=== PATIENT | female | born 1975 | race Two or more races ===

== ENCOUNTER 2021-06-03 11:11 | Outpatient (CLI) | payer OTHER ==
[~2021-06-03 11:11] MED LIST: CATAFLAM50 MG PO; CEFTIN250 MG PO; COZAAR100 MG PO; CYCLOBENZAPRINE10 MG PO; DOLOGEN CAPLET1 EACH PO; FIORICET 50-321 EACH PO; FLEXERIL10 MG PO; LOTRISONE CREAM45 GM TP; MEDROL4 MG PO; NABUMETONE750 MG PO; SKELAXIN800 MG PO; VOLTAREM 50 MG PO
== END 2021-06-03 18:00 | disposition home or self-care (01) ==
LOC: LAB 11:11
PROVIDERS: ATTEND Emergency Medicine Pediatric Emergency Medicine
DX: Z03.818 Encounter for observation for suspected exposure to other biological agents ruled out (principal)

== ENCOUNTER 2021-09-14 08:00 | Outpatient (CLI) | payer OTHER ==
[~2021-09-14 08:00] MED LIST changes: +KETO10TA2 PO
== END 2021-09-14 08:30 | disposition home or self-care (01) ==
LOC: PPH VACUNA 08:00
PROVIDERS: ATTEND Emergency Medicine Pediatric Emergency Medicine
DX: Z23 Encounter for immunization (principal)

== ENCOUNTER 2021-10-21 09:27 | Outpatient (CLI) | payer OTHER | END 2021-10-21 09:44 | disposition home or self-care (01) | LOC: RAD 09:27 | PROVIDERS: ATTEND Internal Medicine Cardiovascular Disease | DX: I10 Essential (primary) hypertension (principal) ==

== ENCOUNTER 2021-10-22 06:32 | Outpatient (CLI) | payer OTHER | END 2021-10-22 06:33 | disposition home or self-care (01) | LOC: LAB 06:32 | PROVIDERS: ATTEND Internal Medicine Cardiovascular Disease | DX: I10 Essential (primary) hypertension (principal); E11.9 Type 2 diabetes mellitus without complications; E03.8 Other specified hypothyroidism; E78.2 Mixed hyperlipidemia; E55.9 Vitamin D deficiency, unspecified ==

== ENCOUNTER 2021-10-28 12:22 | Outpatient (CLI) | payer OTHER | END 2021-10-28 12:38 | disposition home or self-care (01) | LOC: MAMO-SONO 12:22 | PROVIDERS: ATTEND Internal Medicine Cardiovascular Disease | DX: N63.11 Unspecified lump in the right breast, upper outer quadrant (principal); N63.0 Unspecified lump in unspecified breast ==

== ENCOUNTER 2021-11-20 09:00 | Outpatient (CLI) | payer OTHER | END 2021-11-20 09:15 | disposition home or self-care (01) | LOC: PPH VACUNA 09:00 | PROVIDERS: ATTEND Emergency Medicine Pediatric Emergency Medicine | DX: Z23 Encounter for immunization (principal) ==

== ENCOUNTER 2022-08-31 10:30 | Outpatient (CLI) | payer OTHER | END 2022-08-31 10:35 | disposition home or self-care (01) | LOC: PPH VACUNA 10:30 | PROVIDERS: ATTEND Emergency Medicine Pediatric Emergency Medicine | DX: Z23 Encounter for immunization (principal) ==

== ENCOUNTER 2022-12-15 07:49 | Outpatient (CLI) | payer OTHER | END 2022-12-15 07:55 | disposition home or self-care (01) | LOC: RAD 07:49 | PROVIDERS: ATTEND Physical Medicine & Rehabilitation | DX: M54.2 Cervicalgia (principal) ==

== ENCOUNTER 2023-03-07 15:02 | Outpatient (CLI) | payer OTHER | END 2023-03-07 15:03 | disposition home or self-care (01) | LOC: LAB 15:02 | PROVIDERS: ATTEND Obstetrics & Gynecology | DX: N91.2 Amenorrhea, unspecified (principal); E78.5 Hyperlipidemia, unspecified; E34.9 Endocrine disorder, unspecified; N95.1 Menopausal and female climacteric states; E23.6 Other disorders of pituitary gland; R19.00 Intra-abdominal and pelvic swelling, mass and lump, unspecified site; N39.0 Urinary tract infection, site not specified; E55.9 Vitamin D deficiency, unspecified; D51.9 Vitamin B12 deficiency anemia, unspecified; N73.9 Female pelvic inflammatory disease, unspecified; A60.04 Herpesviral vulvovaginitis; R73.9 Hyperglycemia, unspecified; K75.9 Inflammatory liver disease, unspecified; A49.3 Mycoplasma infection, unspecified site; J11.1 Influenza due to unidentified influenza virus with other respiratory manifestations ==

== ENCOUNTER 2023-03-10 16:05 | Outpatient (CLI) | payer OTHER | END 2023-03-10 16:07 | disposition home or self-care (01) | LOC: LAB 16:05 | PROVIDERS: ATTEND Internal Medicine Cardiovascular Disease | DX: E11.9 Type 2 diabetes mellitus without complications (principal) ==

== ENCOUNTER 2023-05-19 16:33 | Outpatient (CLI) | payer OTHER | END 2023-05-19 16:35 | disposition home or self-care (01) | LOC: LAB 16:33 | PROVIDERS: ATTEND Anesthesiology | DX: Z20.822 Contact with and (suspected) exposure to COVID-19 (principal) ==

== ENCOUNTER 2023-06-01 16:23 | Outpatient (CLI) | payer OTHER | END 2023-06-01 16:25 | disposition home or self-care (01) | LOC: LAB 16:23 | DX: A49.3 Mycoplasma infection, unspecified site (principal) ==

== ENCOUNTER 2023-10-20 16:10 | Outpatient (CLI) | payer OTHER ==
[2023-10-20 16:57] LABS: MYCOPLASMA PNEUMONIAE IGM NON REACTIVE (NO REACTIVE)
== END 2023-10-20 16:14 | disposition home or self-care (01) ==
LOC: LAB 16:10
PROVIDERS: ATTEND Anesthesiology
DX: Z20.822 Contact with and (suspected) exposure to COVID-19 (principal); A49.3 Mycoplasma infection, unspecified site; J09.X2 Influenza due to identified novel influenza A virus with other respiratory manifestations

== ENCOUNTER 2024-01-10 09:00 | Outpatient (CLI) | payer OTHER | END 2024-01-10 09:10 | disposition home or self-care (01) | LOC: PPH VACUNA 09:00 | PROVIDERS: ATTEND Emergency Medicine Pediatric Emergency Medicine | DX: Z23 Encounter for immunization (principal) ==

== ENCOUNTER 2024-05-18 06:10 | Outpatient (CLI) | payer OTHER ==
[2024-05-19 09:15] LABS: ESTRADIOL SERUM 34.9 pg/mL (.); FOLLICLE STIMULATING HORMONE 94.6 mIU/mL (.); PROGESTERONA < 0.1 ng/mL (.)
== END 2024-05-18 06:20 | disposition home or self-care (01) ==
LOC: LAB 06:10
PROVIDERS: ATTEND Obstetrics & Gynecology
DX: N91.2 Amenorrhea, unspecified (principal); E78.5 Hyperlipidemia, unspecified; N98.1 Hyperstimulation of ovaries

== ENCOUNTER 2024-05-24 14:45 | Outpatient (CLI) | payer OTHER | END 2024-05-24 14:54 | disposition home or self-care (01) | LOC: MAMO-SONO 14:45 | PROVIDERS: ATTEND Obstetrics & Gynecology | DX: N63.0 Unspecified lump in unspecified breast (principal); N64.4 Mastodynia; N93.9 Abnormal uterine and vaginal bleeding, unspecified ==

== ENCOUNTER 2024-06-26 15:16 | Outpatient (CLI) | payer OTHER | END 2024-06-26 15:19 | disposition home or self-care (01) | LOC: LAB 15:16 | PROVIDERS: ATTEND Preventive Medicine Occupational Medicine | DX: B19.10 Unspecified viral hepatitis B without hepatic coma (principal) ==

== ENCOUNTER 2024-08-09 10:20 | Outpatient (CLI) | payer OTHER | END 2024-08-09 11:00 | disposition home or self-care (01) | LOC: PPH VACUNA 10:20 | PROVIDERS: ATTEND Emergency Medicine Pediatric Emergency Medicine | DX: Z23 Encounter for immunization (principal) ==

== ENCOUNTER 2024-09-13 15:29 | Outpatient (CLI) | payer OTHER | END 2024-09-13 15:32 | disposition home or self-care (01) | LOC: LAB 15:29 | PROVIDERS: ATTEND Anesthesiology | DX: Z00.00 Encounter for general adult medical examination without abnormal findings (principal) ==

== ENCOUNTER → 2024-09-14 13:42 | Outpatient (CLI) | payer OTHER ==
[~2024-09-14 13:42] MED LIST changes: +ACTIVELLA 1 MG1 EACH; +AVAPRO300 MG PO; +GLIMEPIRIDE4 MG; +PROMETRIUM200 MG
[2024-09-14 14:25] LABS: HEMATOCRIT 39.1 % (36.0-45.00); HEMOGLOBIN 12.5 g/dL (12.0-15.00); MEAN CELL VOLUME 78.2 fL (80.00-100.00); MEAN CORPUSCULAR HGB CONC 31.9 g/dl (32.0-36.0); PLATELET COUNT 338 K/uL (150-450); RED BLOOD COUNT 4.99 M/uL (4.00-6.00); RED CELL DISTRIBUTION WIDTH 14.9 % (11.5-14.5)
[2024-09-14 15:06] LABS: MYCOPLASMA PNEUMONIAE IGM NON REACTIVE (NO REACTIVE)
== END | disposition home or self-care (01) ==
LOC: LAB 13:42
PROVIDERS: ATTEND Anesthesiology
DX: J11.1 Influenza due to unidentified influenza virus with other respiratory manifestations (principal); A49.3 Mycoplasma infection, unspecified site; Z20.822 Contact with and (suspected) exposure to COVID-19

== ENCOUNTER 2024-09-16 06:33 | Emergency (ER) | payer OTHER ==
[~2024-09-16] VITALS: Ht 157.5 cm; Wt 68.0 kg
[~2024-09-16 06:33] MED LIST changes: -ACTIVELLA 1 MG1 EACH; -AVAPRO300 MG PO; -GLIMEPIRIDE4 MG; -PROMETRIUM200 MG
[2024-09-16] MEDS ORDERED: GLIMEPIRIDE4 MG (06:43)
[2024-09-16] MEDS ORDERED: AVAPRO300 MG PO (06:43)
[2024-09-16] MEDS ORDERED: ACTIVELLA 1 MG1 EACH (06:44)
[2024-09-16] MEDS ORDERED: PROMETRIUM200 MG (06:45)
[2024-09-16] MEDS ORDERED: FAMOTIDINE/PF 20 MG in 0.9 % SODIUM CHLORIDE 8 ML IV PUSH STA (07:03)
[2024-09-16] MEDS ORDERED: 0.9 % SODIUM CHLORIDE 1,000 ML IV SCH (07:15)
[2024-09-16] MEDS ORDERED: METRONIDAZOLE/SODIUM CHLORIDE 500 MG/100 ML PIGGYBACK IV ONE (07:15)
[2024-09-16] MEDS ORDERED: DIPHENOXYLATE HCL/ATROPINE 1 UDTAB TABLET PO ONE (07:15)
[2024-09-16 07:57] LABS: HEMATOCRIT 40.8 % (36.0-45.00); HEMOGLOBIN 13.7 g/dL (12.0-15.00); MEAN CELL VOLUME 76.3 fL (80.00-100.00); MEAN CORPUSCULAR HEMOGLOBIN 25.6 pg (27.00-32.0); MEAN CORPUSCULAR HGB CONC 33.6 g/dl (32.0-36.0); PLATELET COUNT 342 K/uL (150-450); RED BLOOD COUNT 5.35 M/uL (4.00-6.00); RED CELL DISTRIBUTION WIDTH 14.9 % (11.5-14.5)
[2024-09-16 08:35] LABS: ALBUMIN 3.5 gm/dL (3.4-5.0); BILIRUBIN TOTAL 0.22 mg/dL (0.3-1.2); CALCIUM 9.1 mg/dL (8.5-10.1); CREATININE SERUM 0.86 mg/dL (0.55-1.02); GFR 69.56; GLOBULINA 4.5 G/DL (2.4-3.5)
[2024-09-16 08:40] LABS: POTASSIUM 2.97 mEq/L (3.5-5.1)
[2024-09-16] MEDS ORDERED: POTASSIUM CHLORIDE/NACL 0.9% 20 MEQ/1,000 ML PIGGYBAG IV STA (08:42)
[2024-09-16] MEDS ORDERED: POTASSIUM CHLORIDE IN 0.9%NACL 40 MEQ/1,000 ML PIGGYBAG IV STA (09:52)
== END 2024-09-16 11:19 | disposition home or self-care (01) ==
LOC: ER 06:34
PROVIDERS: General Practice
DX: K52.89 Other specified noninfective gastroenteritis and colitis (principal); I10 Essential (primary) hypertension; E11.9 Type 2 diabetes mellitus without complications; Z79.84 Long term (current) use of oral hypoglycemic drugs; N20.1 Calculus of ureter; N13.39 Other hydronephrosis

== ENCOUNTER 2024-10-03 12:31 | Outpatient (CLI) | payer OTHER ==
[~2024-10-03 12:31] MED LIST changes: +ACTIVELLA 1 MG1 EACH; +AVAPRO300 MG PO; +GLIMEPIRIDE4 MG; +PROMETRIUM200 MG
[2024-10-03 13:31] LABS: HEMATOCRIT 37.7 % (36.0-45.00); HEMOGLOBIN 12.7 g/dL (12.0-15.00); MEAN CELL VOLUME 77.3 fL (80.00-100.00); MEAN CORPUSCULAR HGB CONC 33.6 g/dl (32.0-36.0); PLATELET COUNT 446 K/uL (150-450); RED BLOOD COUNT 4.87 M/uL (4.00-6.00); RED CELL DISTRIBUTION WIDTH 15.1 % (11.5-14.5)
[2024-10-03 13:37] LABS: URINE APPEARANCE Clear; URINE BILIRRUBIN Negative (NEGATIVE); URINE BLOOD Negative; URINE COLOR Yellow; URINE GLUCOSE Negative (NEGATIVE); URINE KETONE Negative (NEGATIVE); URINE LEUKOCYTE Trace; URINE NITRATE Negative; URINE PROTEIN Negative (NEGATIVE); URINE UROBILINOGEN 0.2 E.U./dl
[2024-10-03 13:38] LABS: URINE BACTERIA 565.6 uL (0.0-1933); URINE EPITHELIAL CELLS 8.9 uL (0.0-38.8); URINE RBC 8.8 uL (0.0-20.8); URINE WBC 23.7 uL (0.0-23.2)
[2024-10-03 13:49] LABS: INR 0.97; PARTIAL THROMBOPLASTIN TIME 23.9 SECONDS (22.0-34.0); PROTHROMBIN TIME 10.6 SECONDS (9.0-11.5)
[2024-10-03 14:39] LABS: ALBUMIN 3.8 gm/dL (3.4-5.0); BILIRUBIN TOTAL 0.67 mg/dL (0.3-1.2); CALCIUM 9.4 mg/dL (8.5-10.1); CREATININE SERUM 0.63 mg/dL (0.55-1.02); GFR 99.62; GLOBULINA 3.8 G/DL (2.4-3.5); POTASSIUM 3.14 mEq/L (3.5-5.1); TOTAL PROTEIN 7.6 gm/dL (6.4-8.2)
== END 2024-10-03 12:32 | disposition home or self-care (01) ==
LOC: RAD 12:31
PROVIDERS: ATTEND Specialist
DX: R97.0 Elevated carcinoembryonic antigen [CEA] (principal); Z01.818 Encounter for other preprocedural examination; E53.9 Vitamin B deficiency, unspecified; E55.9 Vitamin D deficiency, unspecified; Z11.4 Encounter for screening for human immunodeficiency virus [HIV]; R63.4 Abnormal weight loss; K73.9 Chronic hepatitis, unspecified; Z32.00 Encounter for pregnancy test, result unknown; D52.9 Folate deficiency anemia, unspecified; E53.8 Deficiency of other specified B group vitamins; E78.00 Pure hypercholesterolemia, unspecified

== ENCOUNTER → 2024-11-14 09:35 | Outpatient (CLI) | payer OTHER ==
[2024-11-14 12:03] LABS: ALBUMIN 3.8 gm/dL (3.4-5.0); CALCIUM 9.5 mg/dL (8.5-10.1); CREATININE SERUM 0.61 mg/dL (0.55-1.02); GFR 103.4; PHOSPHOROUS 3.4 mg/dL (2.5-4.9); POTASSIUM 3.15 mEq/L (3.5-5.1)
[2024-11-14 12:10] LABS: ob NEGATIVE (NEGATIVE)
[2024-11-14 13:17] LABS: FECAL LEUKOCYTES NEGATIVE (NEGATIVE)
== END | disposition home or self-care (01) ==
LOC: LAB 09:35
PROVIDERS: ATTEND Surgery
DX: A09 Infectious gastroenteritis and colitis, unspecified (principal); A04.72 Enterocolitis due to Clostridium difficile, not specified as recurrent; R14.0 Abdominal distension (gaseous)

== ENCOUNTER 2024-11-29 16:24 | Outpatient (CLI) | payer OTHER | END 2024-11-29 16:30 | disposition home or self-care (01) | LOC: RAD 16:24 | PROVIDERS: ATTEND Urology | DX: N28.0 Ischemia and infarction of kidney (principal); N20.1 Calculus of ureter; I11.0 Hypertensive heart disease with heart failure ==

== ENCOUNTER 2024-11-30 06:55 | Outpatient (CLI) | payer OTHER ==
[2024-11-30 07:40] LABS: URINE APPEARANCE Clear; URINE BILIRRUBIN Negative (NEGATIVE); URINE BLOOD Negative; URINE COLOR Yellow; URINE GLUCOSE Negative (NEGATIVE); URINE KETONE Negative (NEGATIVE); URINE LEUKOCYTE Small; URINE NITRATE Negative; URINE PROTEIN Trace (NEGATIVE); URINE UROBILINOGEN 0.2 E.U./dl
[2024-11-30 07:43] LABS: URINE BACTERIA 2219.9 uL (0.0-1933); URINE EPITHELIAL CELLS 11.7 uL (0.0-38.8); URINE RBC 14.8 uL (0.0-20.8); URINE WBC 84.8 uL (0.0-23.2)
[2024-11-30 07:44] LABS: URINE CAST 0.29 uL (0.0-1.40)
[2024-11-30 08:04] LABS: HEMATOCRIT 34.4 % (36.0-45.00); HEMOGLOBIN 11.6 g/dL (12.0-15.00); MEAN CELL VOLUME 77.2 fL (80.00-100.00); MEAN CORPUSCULAR HEMOGLOBIN 26.1 pg (27.00-32.0); MEAN CORPUSCULAR HGB CONC 33.8 g/dl (32.0-36.0); PLATELET COUNT 462 K/uL (150-450); RED BLOOD COUNT 4.46 M/uL (4.00-6.00); RED CELL DISTRIBUTION WIDTH 14.9 % (11.5-14.5)
[2024-11-30 09:05] LABS: ALBUMIN 3.4 gm/dL (3.4-5.0); BILIRUBIN TOTAL 0.34 mg/dL (0.3-1.2); CALCIUM 9.8 mg/dL (8.5-10.1); CREATININE SERUM 0.68 mg/dL (0.55-1.02); GFR 91.22; POTASSIUM 3.47 mEq/L (3.5-5.1); TOTAL PROTEIN 7.4 gm/dL (6.4-8.2)
[2024-12-04] MEDS ORDERED: AVALIDE 300-121 EACH PO (15:22)
== END 2024-11-30 23:00 | disposition home or self-care (01) ==
LOC: LAB 06:55
PROVIDERS: ATTEND Urology
DX: N20.0 Calculus of kidney (principal); N28.0 Ischemia and infarction of kidney

== ENCOUNTER 2024-12-07 05:00 | Day surgery (SDC) | payer OTHER ==
[2024-12-04 15:23] VITALS: BP 121/78
[2024-12-04 15:23] LABS: INR 0.97; PARTIAL THROMBOPLASTIN TIME 25.6 SECONDS (22.0-34.0); PROTHROMBIN TIME 10.6 SECONDS (9.0-11.5)
[~2024-12-07] VITALS: Ht 157.5 cm; Wt 68.0 kg
[~2024-12-07 05:00] MED LIST changes: +AVALIDE 300-121 EACH PO
[2024-12-07] MEDS ORDERED: GENTAMICIN SULFATE 40 MG/ML VIAL ONE (06:11)
[2024-12-07] MEDS ORDERED: CHLORHEXIDINE GLUCONATE 120 ML BOTTLE TOP ONE (06:12)
[2024-12-07] MEDS ORDERED: IOVERSOL 320 MG/ML - 50 ML VIAL IV ONE (08:23)
[2024-12-07] MEDS ORDERED: TAMSULOSIN HCL 0.4 MG CAP PO STA (08:32)
[2024-12-07] MEDS ORDERED: PHENAZOPYRIDINE HCL 100 MG TABLET PO STA (08:32)
[2024-12-07] MEDS ORDERED: KETOROLAC TROMETHAMINE 30 MG VIAL IV STA (08:32)
[2024-12-07] MEDS ORDERED: TAMSULOSIN HCL 0.4 MG CAP PO ONE (11:39)
[2024-12-07] MEDS ORDERED: PHENAZOPYRIDINE HCL 100 MG TABLET PO ONE (11:39)
[2024-12-07] MEDS ORDERED: KETOROLAC TROMETHAMINE 30 MG VIAL ONE (11:43)
[2024-12-07] MEDS ORDERED: KETOROLAC TROMETHAMINE 30 MG VIAL IV ONE (11:50)
[2024-12-07] MEDS ORDERED: MORPHINE SULFATE 4 MG/ML VIAL IV ONE (12:20)
== END 2024-12-07 14:05 | disposition home or self-care (01) ==
LOC: CIR.AMB 05:00
PROVIDERS: ATTEND Urology
DX: N20.1 Calculus of ureter (principal); E11.9 Type 2 diabetes mellitus without complications

== ENCOUNTER 2025-01-22 15:23 | Outpatient (CLI) | payer OTHER | END 2025-01-22 15:26 | disposition home or self-care (01) | LOC: TOM 15:23 | PROVIDERS: ATTEND Urology | DX: N20.1 Calculus of ureter (principal); N20.0 Calculus of kidney ==

== ENCOUNTER 2025-01-29 09:35 | Inpatient (IN) | payer OTHER ==
[~2025-01-29] VITALS: Ht 152.4 cm; Wt 68.0 kg
[2025-01-29] MEDS ORDERED: FAMOtidine 10 MG/ML (4ML VIAL) IV ONE (10:45)
[2025-01-29] MEDS ORDERED: KETOROLAC TROMETHAMINE 30 MG VIAL IU ONE ×2 (10:45→17:45)
[2025-01-29] MEDS ORDERED: PIPERACILLIN/TAZOBACTAM SODIUM 3.375 GM VIAL IV ONE ×2 (10:45→11:18)
[2025-01-29] MEDS ORDERED: KETOROLAC TROMETHAMINE 30 MG VIAL ONE ×2 (11:18→18:00)
[2025-01-29] MEDS ORDERED: FAMOTIDINE/PF 20 MG/2 ML VIAL ONE ×2 (11:18→18:01)
[2025-01-29 12:12] LABS: URINE APPEARANCE Clear; URINE BILIRRUBIN Negative (NEGATIVE); URINE BLOOD Negative; URINE COLOR Yellow; URINE GLUCOSE Negative (NEGATIVE); URINE KETONE Negative (NEGATIVE); URINE LEUKOCYTE Negative; URINE NITRATE Negative; URINE PROTEIN Negative (NEGATIVE); URINE UROBILINOGEN 0.2 E.U./dl
[2025-01-29 12:17] LABS: URINE BACTERIA 35.4 uL (0.0-1933); URINE EPITHELIAL CELLS 7.2 uL (0.0-38.8); URINE WBC 5.9 uL (0.0-23.2)
[2025-01-29 12:18] LABS: URINE RBC 1.3 uL (0.0-20.8)
[2025-01-29 12:19] LABS: HEMATOCRIT 35.6 % (36.0-45.00); HEMOGLOBIN 11.6 g/dL (12.0-15.00); MEAN CELL VOLUME 77.2 fL (80.00-100.00); MEAN CORPUSCULAR HEMOGLOBIN 25.1 pg (27.00-32.0); MEAN CORPUSCULAR HGB CONC 32.5 g/dl (32.0-36.0); PLATELET COUNT 350 K/uL (150-450); RED BLOOD COUNT 4.61 M/uL (4.00-6.00); RED CELL DISTRIBUTION WIDTH 15.4 % (11.5-14.5)
[2025-01-29 12:40] LABS: ALBUMIN 3.5 gm/dL (3.4-5.0); BILIRUBIN TOTAL 0.47 mg/dL (0.3-1.2); CALCIUM 9.8 mg/dL (8.5-10.1); CREATININE SERUM 1.08 mg/dL (0.55-1.02); GFR 53.48; GLOBULINA 4.3 G/DL (2.4-3.5); POTASSIUM 3.02 mEq/L (3.5-5.1); TOTAL PROTEIN 7.8 gm/dL (6.4-8.2)
[2025-01-29 15:05] LABS: PARTIAL THROMBOPLASTIN TIME 27.1 SECONDS (22.0-34.0); PROTHROMBIN TIME 10.9 SECONDS (9.0-11.5)
[2025-01-29] MEDS ORDERED: CEFTRIAXONE SODIUM 2,000 MG in 0.9 % SODIUM CHLORIDE 100 ML IV SCH (17:34)
[2025-01-29] MEDS ORDERED: FAMOTIDINE/PF 20 MG in 0.9 % SODIUM CHLORIDE 8 ML IV PUSH SCH (17:36)
[2025-01-29] MEDS ORDERED: TAMSULOSIN HCL 0.4 MG CAP PO SCH (17:38)
[2025-01-29] MEDS ORDERED: INSULIN LISPRO 1,000 UNIT/10 ML UNITS SUBCUTANEO PRN (17:45)
[2025-01-29] MEDS ORDERED: TRAMADOL HCL 50 MG TABLET PO PRN (17:45)
[2025-01-29] MEDS ORDERED: ACETAMINOPHEN 500 MG GEL..CAP PO PRN (17:45)
[2025-01-29] MEDS ORDERED: 0.9 % SODIUM CHLORIDE 1,000 ML IV SCH (17:45)
[2025-01-29] MEDS ORDERED: POTASSIUM CHLORIDE 20MEQ/100ML H2O PB IV ONE ×2 (17:45→18:01)
[2025-01-29] MEDS ORDERED: DEXTROSE 50 % IN WATER 0.5 G/ML DISP.SYRIN IV PRN (17:45)
[2025-01-29] MEDS ORDERED: TAMSULOSIN HCL 0.4 MG CAP PO ONE (18:00)
[2025-01-29] MEDS ORDERED: CEFTRIAXONE SODIUM 2,000 MG VIAL ONE (18:01)
[2025-01-29 21:07] VITALS: BP 129/72
[2025-01-29] MEDS ORDERED: ACETAMINOPHEN 500 MG GEL..CAP PO ONE (23:40)
[2025-01-29 23:53] VITALS: BP 119/81; O2SAT 100
[2025-01-30 03:03] VITALS: BP 108/68; O2SAT 97
[2025-01-30] MEDS ORDERED: MEPERIDINE HCL/PF 25 MG/ML VIAL IV PRN (07:30)
[2025-01-30 08:26] VITALS: BP 132/78
[2025-01-30] MEDS ORDERED: IRBESARTAN 300 MG TABLET PO SCH (09:00)
[2025-01-30] MEDS ORDERED: ENOXAPARIN SODIUM 40 MG/0.4 ML SYRINGE SUBCUTANEO SCH (09:00)
[2025-01-30 10:06] LABS: MAGNESIUM 2.6 mg/dL (1.8-2.4); PHOSPHOROUS 2.8 mg/dL (2.5-4.9)
[2025-01-30 10:11] LABS: C-REACTIVE PROTEIN 9.49 MG/DL (0.00-0.29)
[2025-01-30] MEDS ORDERED: GENTAMICIN SULFATE 40 MG/ML VIAL IV NR (14:15)
[2025-01-30] MEDS ORDERED: CHLORHEXIDINE GLUCONATE 120 ML BOTTLE TOP ONE (15:10)
[2025-01-30] MEDS ORDERED: IOVERSOL 320 MG/ML - 50 ML VIAL IV ONE (15:11)
[2025-01-30 18:52] VITALS: BP 127/76
[2025-01-30] MEDS ORDERED: ONDANSETRON HCL 2 MG/ML VIAL ONE (19:55)
[2025-01-30] MEDS ORDERED: ONDANSETRON HCL 2 MG/ML VIAL IV ONE (20:00)
[2025-01-30] MEDS ORDERED: MORPHINE SULFATE 2 MG/ML CARTRIDGE IV ONE (20:05)
[2025-01-30 22:29] VITALS: BP 110/56
[2025-01-31 05:00] VITALS: BP 99/65
[2025-01-31 08:10] LABS: HEMOGLOBIN 10.3 g/dL (12.0-15.00); MEAN CELL VOLUME 77.3 fL (80.00-100.00); MEAN CORPUSCULAR HEMOGLOBIN 24.9 pg (27.00-32.0); MEAN CORPUSCULAR HGB CONC 32.3 g/dl (32.0-36.0); PLATELET COUNT 291 K/uL (150-450); RED BLOOD COUNT 4.14 M/uL (4.00-6.00); RED CELL DISTRIBUTION WIDTH 15.4 % (11.5-14.5)
[2025-01-31 08:53] LABS: ALBUMIN 2.9 gm/dL (3.4-5.0); BILIRUBIN TOTAL 0.29 mg/dL (0.3-1.2); CALCIUM 8.4 mg/dL (8.5-10.1); CREATININE SERUM 0.83 mg/dL (0.55-1.02); GFR 72.47; GLOBULINA 3.7 G/DL (2.4-3.5); MAGNESIUM 2.2 mg/dL (1.8-2.4); PHOSPHOROUS 3.1 mg/dL (2.5-4.9); POTASSIUM 3.29 mEq/L (3.5-5.1); TOTAL PROTEIN 6.6 gm/dL (6.4-8.2)
[2025-01-31 09:14] LABS: C-REACTIVE PROTEIN 9.91 MG/DL (0.00-0.29)
[2025-01-31 09:38] VITALS: BP 120/76; O2SAT 98
[2025-01-31 10:14] LABS: URINE APPEARANCE Clear; URINE BILIRRUBIN Negative (NEGATIVE); URINE BLOOD Small; URINE COLOR Yellow; URINE GLUCOSE Negative (NEGATIVE); URINE KETONE 15 (NEGATIVE); URINE LEUKOCYTE Moderate; URINE NITRATE Negative; URINE PROTEIN 30 (NEGATIVE); URINE UROBILINOGEN 0.2 E.U./dl
[2025-01-31 10:19] LABS: URINE BACTERIA 134.6 uL (0.0-1933); URINE EPITHELIAL CELLS 16.7 uL (0.0-38.8); URINE RBC 131.8 uL (0.0-20.8); URINE WBC 149.5 uL (0.0-23.2)
[2025-01-31 11:02] LABS: URINE CAST 0.88 uL (0.0-1.40)
[2025-01-31 18:49] VITALS: BP 108/72; O2SAT 100
[2025-01-31] MEDS ORDERED: BISMUTH SUBSALICYLATE 524 MG/30 ML BLIST.PACK PO PRN (20:00)
[2025-01-31] MEDS ORDERED: MORPHINE SULFATE 4 MG/ML CARTRIDGE IV PRN (20:30)
[2025-01-31] MEDS ORDERED: FAMOtidine 20 MG TABLET PO SCH (21:00)
[2025-02-01] MEDS ORDERED: LACTOBACILLUS ACIDOPHILUS 1 CAP CAP PO SCH ×3 (01:00→17:00)
[2025-02-01 01:32] VITALS: BP 121/72
[2025-02-01 11:10] VITALS: BP 118/65
[2025-02-01 17:30] VITALS: BP 134/83
[2025-02-01 21:51] LABS: CALCIUM 9.2 mg/dL (8.5-10.1); CREATININE SERUM 0.72 mg/dL (0.55-1.02); GFR 85.4; POTASSIUM 3.39 mEq/L (3.5-5.1)
[2025-02-02 03:10] VITALS: BP 127/64; O2SAT 95
[2025-02-02 08:00] VITALS: BP 125/62
[2025-02-02] MEDS ORDERED: POTASSIUM CHLORIDE 10 MEQ CAPSULE PO NR (11:30)
[2025-02-02 17:08] VITALS: BP 131/75
[2025-02-02] MEDS ORDERED: MORPHINE SULFATE 4 MG/ML CARTRIDGE IV PRN (22:15)
[2025-02-03 01:30] VITALS: BP 135/83; O2SAT 99
[2025-02-03 08:00] VITALS: BP 136/81; O2SAT 98
[2025-02-03 08:33] LABS: CALCIUM 8.8 mg/dL (8.5-10.1); CREATININE SERUM 0.6 mg/dL (0.55-1.02); GFR 105.39; POTASSIUM 3.94 mEq/L (3.5-5.1)
[2025-02-03 17:48] VITALS: BP 139/92
[2025-02-04 00:39] VITALS: BP 102/50
[2025-02-04 10:07] VITALS: BP 124/72; O2SAT 98
== END 2025-02-04 15:15 | disposition home or self-care (01) | DRG 690 ==
LOC: ER 09:37 → MEDJ 18:49 → SEC-K 19:02 → MEDJ 01-30 00:06
PROVIDERS: General Practice; Internal Medicine; Internal Medicine Infectious Disease; Urology; ADMIT Internal Medicine; ATTEND Internal Medicine
PROC: BW21YZZ Computerized Tomography (CT Scan) of Abdomen and Pelvis using Other Contrast (ICD-10-PCS; 2025-01-29)
PROC: 0TJB8ZZ Inspection of Bladder, Via Natural or Artificial Opening Endoscopic (ICD-10-PCS; 2025-01-30)
PROC: 02HV33Z Insertion of Infusion Device into Superior Vena Cava, Percutaneous Approach (ICD-10-PCS; 2025-01-30)
PROC: 0T9680Z Drainage of Right Ureter with Drainage Device, Via Natural or Artificial Opening Endoscopic (ICD-10-PCS; principal; 2025-01-30 15:30)
DX: N13.5 Crossing vessel and stricture of ureter without hydronephrosis (principal); E87.6 Hypokalemia; R19.7 Diarrhea, unspecified; I10 Essential (primary) hypertension

== ENCOUNTER 2025-04-12 14:31 | Outpatient (CLI) | payer OTHER ==
[2025-04-12 15:00] LABS: URINE APPEARANCE Cloudy; URINE BILIRRUBIN Negative (NEGATIVE); URINE BLOOD Moderate; URINE COLOR Yellow; URINE GLUCOSE Negative (NEGATIVE); URINE KETONE Negative (NEGATIVE); URINE LEUKOCYTE Large; URINE NITRATE Negative; URINE PROTEIN Negative (NEGATIVE); URINE UROBILINOGEN 0.2 E.U./dl
[2025-04-12 15:03] LABS: URINE BACTERIA 1127.1 uL (0.0-1933); URINE EPITHELIAL CELLS 53.9 uL (0.0-38.8); URINE WBC 882.4 uL (0.0-23.2)
[2025-04-12 15:38] LABS: URINE CAST 0.14 uL (0.0-1.40)
== END 2025-04-12 14:33 | disposition home or self-care (01) ==
LOC: LAB 14:31
PROVIDERS: ATTEND Internal Medicine Geriatric Medicine
DX: N39.0 Urinary tract infection, site not specified (principal); N30.00 Acute cystitis without hematuria

== ENCOUNTER 2025-05-07 09:02 | Outpatient (CLI) | payer OTHER ==
[~2025-05-07 09:02] MED LIST changes: +TRIAMCINOL40 MG/1 M4 IJ
[2025-05-07 10:09] LABS: BASO % 0.7 % (0.1-1.2); EOS # 0.74 (0.04-0.54); EOS % 8.4 % (0.7-7.0); LYMPH # 2.44 (1.18-3.74); LYMPH % 27.6 % (19.3-53.1); MEAN PLATELET VOLUME 8.40 fl (9.4-12.4); MONO # 0.48 (0.24-0.82); MONO % 5.4 % (4.7-12.5); NEUT # 5.07 (1.56-6.13); NEUT % 57.4 % (34.0-71.1); RED CELL DISTRIBUTION WIDTH 13.8 % (11.6-14.4)
[2025-05-07 10:12] LABS: URINE APPEARANCE Turbid; URINE BILIRRUBIN Negative (NEGATIVE); URINE BLOOD Large; URINE COLOR Yellow; URINE GLUCOSE Negative (NEGATIVE); URINE KETONE Negative (NEGATIVE); URINE LEUKOCYTE Large; URINE NITRATE Positive; URINE UROBILINOGEN 1.0 E.U./dl
[2025-05-07 10:16] LABS: URINE CAST 1.47 uL (0.0-1.40); URINE EPITHELIAL CELLS 20.7 uL (0.0-38.8); URINE RBC 6299.7 uL (0.0-20.8)
[2025-05-07 10:34] LABS: INR 0.98
[2025-05-07 11:16] LABS: BUN CREA RATIO 23.0 (7.0-25.0); CREATININE SERUM 0.75 mg/dL (0.55-1.02); GFR 81.47; GLUCOSE FASTING 104.0 mg/dL (65-100); OSMOLALITY SERUM 289.0 MOSM/KG (275-295)
[2025-05-07 11:51] LABS: URINE BACTERIA > 9821.5 uL (0.0-1933); URINE PROTEIN 300 (NEGATIVE); URINE WBC > 5548.3 uL (0.0-23.2)
[2025-05-07 11:52] LABS: URINE CRYSTALS FEW /HPF
== END 2025-05-07 09:11 | disposition home or self-care (01) ==
LOC: RAD 09:02
PROVIDERS: ATTEND Urology
DX: R31.1 Benign essential microscopic hematuria (principal); N30.00 Acute cystitis without hematuria; I25.10 Atherosclerotic heart disease of native coronary artery without angina pectoris

== ENCOUNTER 2025-05-07 10:00 | Inpatient (IN) | payer OTHER ==
[~2025-05-07] VITALS: Ht 157.5 cm; Wt 68.0 kg
[2025-05-09 10:23] VITALS: BP 126/83
[2025-05-09 10:47] LABS: COVID-19 AG NEGATIVE (NEGATIVE)
[2025-05-09 11:36] LABS: RH POSITIVE
[2025-05-17] MEDS ORDERED: GENTAMICIN SULFATE 40 MG/ML VIAL IV ONE (08:45)
[2025-05-17] MEDS ORDERED: CEFAZOLIN SODIUM 1,000 MG VIAL IV ONE (08:45)
[2025-05-17] MEDS ORDERED: MORPHINE SULFATE 4 MG/ML VIAL IV ONE ×2 (13:10→13:40)
[2025-05-17] MEDS ORDERED: ENOXAPARIN SODIUM 40 MG/0.4 ML SYRINGE SUBCUTANEO ONE (13:15)
[2025-05-17] MEDS ORDERED: SUGAMMADEX SODIUM 200 MG/2 ML VIAL IV ONE (13:15)
[2025-05-17] MEDS ORDERED: DEXTROSE 5 %-0.45 % SOD CHLORD 1,000 ML IV SCH (13:18)
[2025-05-17] MEDS ORDERED: MORPHINE SULFATE 4 MG/ML CARTRIDGE IV PRN (13:30)
[2025-05-17] MEDS ORDERED: ONDANSETRON HCL 2 MG/ML VIAL IV PRN (13:30)
[2025-05-17 14:25] VITALS: BP 133/81; O2SAT 97
[2025-05-17] MEDS ORDERED: INSULIN LISPRO 1,000 UNIT/10 ML UNITS SUBCUTANEO PRN (15:15)
[2025-05-17] MEDS ORDERED: ENALAPRILAT DIHYDRATE 1.25 MG/ML VIAL IV PRN (15:15)
[2025-05-17] MEDS ORDERED: DEXTROSE 50 % IN WATER 0.5 G/ML VIAL IV PRN (15:15)
[2025-05-17 16:00] VITALS: BP 128/77; O2SAT 96
[2025-05-17] MEDS ORDERED: DOCUSATE SODIUM 100MG CAP PO SCH (17:00)
[2025-05-17] MEDS ORDERED: SIMETHICONE 125 MG CAPSULE PO SCH (17:00)
[2025-05-17 23:57] VITALS: BP 101/66; O2SAT 99
[2025-05-18 08:07] LABS: BASO % 0.3 % (0.1-1.2); EOS # 0.02 (0.04-0.54); EOS % 0.1 % (0.7-7.0); LYMPH # 2.53 (1.18-3.74); LYMPH % 15.8 % (19.3-53.1); MEAN PLATELET VOLUME 8.80 fl (9.4-12.4); MONO # 0.78 (0.24-0.82); MONO % 4.9 % (4.7-12.5); NEUT # 12.59 (1.56-6.13); NEUT % 78.5 % (34.0-71.1); RED CELL DISTRIBUTION WIDTH 14.3 % (11.6-14.4)
[2025-05-18 08:28] LABS: BUN CREA RATIO 18.0 (7.0-25.0); CREATININE SERUM 0.66 mg/dL (0.55-1.02); GFR 94.42; GLUCOSE FASTING 124.0 mg/dL (65-100); OSMOLALITY SERUM 282.0 MOSM/KG (275-295)
[2025-05-18 08:54] VITALS: BP 102/63; O2SAT 96
[2025-05-18] MEDS ORDERED: HYDROCHLOROTHIAZIDE 12.5 MG CAPSULE PO SCH (09:00)
[2025-05-18] MEDS ORDERED: GENTAMICIN SULFATE 40 MG/ML VIAL IV SCH (09:00)
[2025-05-18] MEDS ORDERED: ENOXAPARIN SODIUM 40 MG/0.4 ML SYRINGE SUBCUTANEO SCH (09:00)
[2025-05-18] MEDS ORDERED: IRBESARTAN 300 MG TABLET PO SCH (09:00)
[2025-05-18] MEDS ORDERED: POTASSIUM CHLORIDE IN WATER 100 ML IV NR (10:30)
[2025-05-18 15:00] VITALS: BP 149/89; O2SAT 18
[2025-05-18] MEDS ORDERED: ACETAMINOPHEN WITH CODEINE 1 UDTAB TABLET PO PRN (15:15)
[2025-05-19] VITALS: BP 114/68; O2SAT 97
[2025-05-19 08:00] VITALS: BP 121/63; O2SAT 99
[2025-05-19 09:21] LABS: BASO % 0.3 % (0.1-1.2); EOS # 0.29 (0.04-0.54); EOS % 1.8 % (0.7-7.0); LYMPH # 2.84 (1.18-3.74); LYMPH % 18.0 % (19.3-53.1); MEAN PLATELET VOLUME 8.90 fl (9.4-12.4); MONO # 0.93 (0.24-0.82); MONO % 5.9 % (4.7-12.5); NEUT # 11.57 (1.56-6.13); NEUT % 73.6 % (34.0-71.1); RED CELL DISTRIBUTION WIDTH 14.4 % (11.6-14.4)
[2025-05-19 10:06] LABS: BUN CREA RATIO 15.0 (7.0-25.0); CREATININE SERUM 0.59 mg/dL (0.55-1.02); GFR 107.46; GLUCOSE FASTING 121.0 mg/dL (65-100); OSMOLALITY SERUM 285.0 MOSM/KG (275-295)
[2025-05-19 15:00] VITALS: BP 117/73; O2SAT 99
[2025-05-19] MEDS ORDERED: KETOROLAC TROMETHAMINE 30 MG VIAL IV STA (16:03)
[2025-05-19] MEDS ORDERED: CYCLOBENZAPRINE HCL 5 MG TABLET PO SCH (17:00)
[2025-05-20 01:03] VITALS: BP 114/69; O2SAT 98
[2025-05-20 06:31] LABS: BASO % 0.2 % (0.1-1.2); EOS # 0.74 (0.04-0.54); EOS % 5.9 % (0.7-7.0); LYMPH # 2.76 (1.18-3.74); LYMPH % 22.2 % (19.3-53.1); MEAN PLATELET VOLUME 8.70 fl (9.4-12.4); MONO # 0.63 (0.24-0.82); MONO % 5.1 % (4.7-12.5); NEUT # 8.23 (1.56-6.13); NEUT % 66.1 % (34.0-71.1); RED CELL DISTRIBUTION WIDTH 14.0 % (11.6-14.4)
[2025-05-20 08:32] VITALS: BP 107/65; O2SAT 97
[2025-05-20 16:00] VITALS: BP 110/68; O2SAT 97
[2025-05-21] MEDS ORDERED: ACETAMINOPHEN WITH CODEINE 1 UDTAB TABLET PO PRN (00:15)
[2025-05-21 06:55] LABS: BASO % 0.3 % (0.1-1.2); EOS # 0.77 (0.04-0.54); EOS % 8.7 % (0.7-7.0); LYMPH # 2.50 (1.18-3.74); LYMPH % 28.3 % (19.3-53.1); MEAN PLATELET VOLUME 8.70 fl (9.4-12.4); MONO # 0.53 (0.24-0.82); MONO % 6.0 % (4.7-12.5); NEUT # 4.95 (1.56-6.13); NEUT % 56.1 % (34.0-71.1); RED CELL DISTRIBUTION WIDTH 14.1 % (11.6-14.4)
[2025-05-21 08:00] VITALS: BP 105/68; O2SAT 96
== END 2025-05-21 14:19 | disposition home or self-care (01) | DRG 660 ==
LOC: SURH 05-17 07:00 → O/R 05-17 07:45 → SURG 05-17 10:36
PROVIDERS: Internal Medicine; ADMIT Urology; ATTEND Urology
PROC: 0TS60ZZ Reposition Right Ureter, Open Approach (ICD-10-PCS; principal; 2025-05-18)
PROC: 0TB60ZZ Excision of Right Ureter, Open Approach (ICD-10-PCS; 2025-05-18)
PROC: 0T763DZ Dilation of Right Ureter with Intraluminal Device, Percutaneous Approach (ICD-10-PCS; 2025-05-18)
DX: N13.1 Hydronephrosis with ureteral stricture, not elsewhere classified (principal); N20.1 Calculus of ureter; I10 Essential (primary) hypertension; E11.9 Type 2 diabetes mellitus without complications

== ENCOUNTER → 2025-07-12 07:43 | Outpatient (CLI) | payer OTHER ==
[2025-07-12 10:22] LABS: URINE APPEARANCE Clear; URINE BILIRRUBIN Negative (NEGATIVE); URINE BLOOD Negative; URINE COLOR Yellow; URINE GLUCOSE Negative (NEGATIVE); URINE KETONE Negative (NEGATIVE); URINE LEUKOCYTE Small; URINE NITRATE Positive; URINE PROTEIN Negative (NEGATIVE); URINE UROBILINOGEN 0.2 E.U./dl
[2025-07-12 10:23] LABS: URINE EPITHELIAL CELLS 9.8 uL (0.0-38.8); URINE RBC 3.3 uL (0.0-20.8); URINE WBC 103.3 uL (0.0-23.2)
[2025-07-12 11:09] LABS: URINE BACTERIA > 9821.5 uL (0.0-1933); URINE CAST 0.00 uL (0.0-1.40)
== END | disposition home or self-care (01) ==
LOC: LAB 07:43
PROVIDERS: ATTEND Urology
DX: N20.1 Calculus of ureter (principal); N13.1 Hydronephrosis with ureteral stricture, not elsewhere classified

== ENCOUNTER 2025-07-12 07:57 | Outpatient (CLI) | payer OTHER | END 2025-07-12 08:03 | disposition home or self-care (01) | LOC: SONOGRAMA 07:57 | PROVIDERS: ATTEND Urology | DX: N20.1 Calculus of ureter (principal); N13.1 Hydronephrosis with ureteral stricture, not elsewhere classified ==

== ENCOUNTER 2025-07-16 12:44 | Inpatient (IN) | payer OTHER ==
[~2025-07-16] VITALS: Ht 157.5 cm; Wt 68.0 kg
[2025-07-16] MEDS ORDERED: 0.9 % SODIUM CHLORIDE 1,000 ML IV SCH ×2 (13:15→17:45)
[2025-07-16 14:26] LABS: BASO % 0.4 % (0.1-1.2); EOS # 0.35 (0.04-0.54); EOS % 3.8 % (0.7-7.0); LYMPH # 2.34 (1.18-3.74); LYMPH % 25.3 % (19.3-53.1); MEAN PLATELET VOLUME 8.60 fl (9.4-12.4); MONO # 0.55 (0.24-0.82); MONO % 5.9 % (4.7-12.5); NEUT # 5.96 (1.56-6.13); NEUT % 64.4 % (34.0-71.1); RED CELL DISTRIBUTION WIDTH 14.2 % (11.6-14.4)
[2025-07-16 14:50] LABS: ALT/SGPT 21.0 U/L (12-78); AST/SGOT 15.0 U/L (15-37); BILIRUBIN TOTAL 0.23 mg/dL (0.3-1.2); BUN CREA RATIO 15.0 (7.0-25.0); CREATININE SERUM 0.89 mg/dL (0.55-1.02); GFR 66.6; GLOBULINA 4.2 G/DL (2.4-3.5); GLUCOSE FASTING 160.0 mg/dL (65-100); OSMOLALITY SERUM 285.0 MOSM/KG (275-295)
[2025-07-16 14:50] LABS: COVID-19 AG NEGATIVE (NEGATIVE)
[2025-07-16] MEDS ORDERED: POTASSIUM CHLORIDE/D5-0.9%NACL 1,000 ML IV ONE (15:15)
[2025-07-16 15:34] LABS: URINE APPEARANCE Clear; URINE BILIRRUBIN Negative (NEGATIVE); URINE BLOOD Negative; URINE COLOR Yellow; URINE GLUCOSE Negative (NEGATIVE); URINE KETONE Negative (NEGATIVE); URINE LEUKOCYTE Negative; URINE NITRATE Negative; URINE PROTEIN Negative (NEGATIVE); URINE UROBILINOGEN 0.2 E.U./dl
[2025-07-16 15:35] LABS: URINE EPITHELIAL CELLS 3.2 uL (0.0-38.8); URINE WBC 10.7 uL (0.0-23.2)
[2025-07-16 15:41] LABS: URINE BACTERIA > 9821.5 uL (0.0-1933); URINE CAST 0.00 uL (0.0-1.40); URINE RBC 1.7 uL (0.0-20.8)
[2025-07-16] MEDS ORDERED: DEXTROSE 50 % IN WATER 0.5 G/ML VIAL IV PRN (17:45)
[2025-07-16] MEDS ORDERED: ENOXAPARIN SODIUM 40 MG/0.4 ML SYRINGE SUBCUTANEO SCH (17:45)
[2025-07-16] MEDS ORDERED: INSULIN LISPRO 1,000 UNIT/10 ML UNITS SUBCUTANEO PRN (17:45)
[2025-07-16] MEDS ORDERED: ENOXAPARIN SODIUM 40 MG/0.4 ML SYRINGE SUBCUTANEO ONE (18:08)
[2025-07-16 18:32] VITALS: BP 137/77; O2SAT 99
[2025-07-16 19:10] VITALS: BP 118/66; O2SAT 97
[2025-07-16] MEDS ORDERED: MEROPENEM 500 MG/VIAL VIAL IV SCH (21:00)
[2025-07-16] MEDS ORDERED: FAMOTIDINE/PF 20 MG/2 ML VIAL IV SCH (21:00)
[2025-07-17 01:40] VITALS: BP 106/63; O2SAT 100
[2025-07-17 08:29] VITALS: BP 110/63; O2SAT 98
[2025-07-17] MEDS ORDERED: IRBESARTAN 300 MG TABLET PO SCH (09:00)
[2025-07-17] MEDS ORDERED: HYDROCHLOROTHIAZIDE 12.5 MG CAPSULE PO SCH (09:00)
[2025-07-17 09:07] LABS: BASO % 0.5 % (0.1-1.2); EOS # 0.43 (0.04-0.54); EOS % 5.2 % (0.7-7.0); LYMPH # 2.27 (1.18-3.74); LYMPH % 27.7 % (19.3-53.1); MEAN PLATELET VOLUME 9.10 fl (9.4-12.4); MONO # 0.51 (0.24-0.82); MONO % 6.2 % (4.7-12.5); NEUT # 4.93 (1.56-6.13); NEUT % 60.2 % (34.0-71.1); RED CELL DISTRIBUTION WIDTH 14.5 % (11.6-14.4)
[2025-07-17 09:12] LABS: ERYTHROCYTE SEDIMENTATION RATE 93 mm/hr (0-30)
[2025-07-17 10:39] LABS: ALT/SGPT 20.0 U/L (12-78); AST/SGOT 13.0 U/L (15-37); BILIRUBIN TOTAL 0.35 mg/dL (0.3-1.2); BUN CREA RATIO 20.0 (7.0-25.0); CREATININE SERUM 0.8 mg/dL (0.55-1.02); GFR 75.32; GLOBULINA 4.1 G/DL (2.4-3.5); GLUCOSE FASTING 126.0 mg/dL (65-100); OSMOLALITY SERUM 286.0 MOSM/KG (275-295); TSH 0.913 uIU/mL (0.358-3.74)
[2025-07-17] MEDS ORDERED: POTASSIUM CHLORIDE 20MEQ/100ML H2O PB IV ONE (11:15)
[2025-07-17 16:58] VITALS: BP 116/74; O2SAT 99
[2025-07-17] MEDS ORDERED: LACTOBACILLUS ACIDOPHILUS 1 CAP CAP PO SCH (17:00)
[2025-07-18 01:50] VITALS: BP 132/84; O2SAT 100
[2025-07-18 08:00] VITALS: BP 114/71; O2SAT 98
[2025-07-18 19:04] VITALS: BP 110/68; O2SAT 98
[2025-07-19] VITALS: BP 111/73; O2SAT 97
[2025-07-19 06:53] LABS: BASO % 0.3 % (0.1-1.2); EOS # 0.45 (0.04-0.54); EOS % 5.2 % (0.7-7.0); LYMPH # 2.89 (1.18-3.74); LYMPH % 33.4 % (19.3-53.1); MEAN PLATELET VOLUME 8.70 fl (9.4-12.4); MONO # 0.52 (0.24-0.82); MONO % 6.0 % (4.7-12.5); NEUT # 4.74 (1.56-6.13); NEUT % 54.8 % (34.0-71.1); RED CELL DISTRIBUTION WIDTH 14.3 % (11.6-14.4)
[2025-07-19 07:23] LABS: BUN CREA RATIO 19.0 (7.0-25.0); CREATININE SERUM 0.64 mg/dL (0.55-1.02); GFR 97.44; GLUCOSE FASTING 137.0 mg/dL (65-100); OSMOLALITY SERUM 285.0 MOSM/KG (275-295)
[2025-07-19 08:00] VITALS: BP 128/73; O2SAT 97
[2025-07-19] MEDS ORDERED: POTASSIUM CHLORIDE 20MEQ/100ML H2O PB IV NR (09:30)
[2025-07-19 16:15] VITALS: BP 132/80; O2SAT 98
[2025-07-20 01:31] VITALS: BP 110/72; O2SAT 100
[2025-07-20 08:00] VITALS: BP 116/75; O2SAT 98
[2025-07-20] MEDS ORDERED: INTESTINEX680 M1 PO (17:11)
[2025-07-20] MEDS ORDERED: AVAPRO300 MG PO (17:11)
[2025-07-20 17:39] VITALS: BP 114/73; O2SAT 98
== END 2025-07-20 18:00 | disposition home or self-care (01) | DRG 690 ==
LOC: ER 12:44 → SURH 17:58
PROVIDERS: Emergency Medicine; ADMIT Internal Medicine Geriatric Medicine; ATTEND Internal Medicine Geriatric Medicine
PROC: 02HV33Z Insertion of Infusion Device into Superior Vena Cava, Percutaneous Approach (ICD-10-PCS; principal; 2025-07-18)
DX: N39.0 Urinary tract infection, site not specified (principal); B96.1 Klebsiella pneumoniae [K. pneumoniae] as the cause of diseases classified elsewhere; I11.9 Hypertensive heart disease without heart failure; N20.0 Calculus of kidney; E11.9 Type 2 diabetes mellitus without complications; Z79.4 Long term (current) use of insulin

== ENCOUNTER 2025-09-10 15:07 | Outpatient (CLI) | payer OTHER ==
[~2025-09-10 15:07] MED LIST changes: +INTESTINEX680 M1 PO
[2025-09-10 15:38] LABS: URINE APPEARANCE Clear; URINE BILIRRUBIN Negative (NEGATIVE); URINE BLOOD Negative; URINE COLOR Dark Yellow; URINE GLUCOSE Negative (NEGATIVE); URINE KETONE Negative (NEGATIVE); URINE LEUKOCYTE Small; URINE NITRATE Positive; URINE PROTEIN Negative (NEGATIVE); URINE UROBILINOGEN 1.0 E.U./dl
[2025-09-10 15:42] LABS: URINE EPITHELIAL CELLS 34.9 uL (0.0-38.8); URINE RBC 3.3 uL (0.0-20.8); URINE WBC 88.4 uL (0.0-23.2)
[2025-09-10 15:44] LABS: URINE BACTERIA > 9821.5 uL (0.0-1933); URINE CAST 0.00 uL (0.0-1.40)
== END 2025-09-10 15:12 | disposition home or self-care (01) ==
LOC: LAB 15:07
PROVIDERS: ATTEND Internal Medicine Geriatric Medicine
DX: N39.0 Urinary tract infection, site not specified (principal)

== ENCOUNTER 2025-09-13 08:53 | Inpatient (IN) | payer OTHER ==
[~2025-09-13] VITALS: Ht 157.5 cm; Wt 68.0 kg
--- NOTE | 2025-09-13 09:18 | NUR ---
PACIENTE ALERTA Y ORIENTADA X3 PACIENTE REFIERE TENER INFECION EN EL TRACTO URINARIO , RESULTADO VISTO EN LABORATORIO CULTIVO DE ORINA. S/V ESTABLE DETRO DE WRIGHT CONDICION . PACIENTE EN ESPERA DE EVALAUCION MEDICA.
[2025-09-13] MEDS ORDERED: SODIUM CHLORIDE 0.45 % 1,000 ML IV SCH (10:15)
[2025-09-13] MEDS ORDERED: FAMOTIDINE/PF 20 MG/2 ML VIAL IV SCH (10:19)
[2025-09-13] MEDS ORDERED: MEROPENEM 500 MG/VIAL VIAL IV SCH ×2 (10:20→12:00)
[2025-09-13] MEDS ORDERED: LACTOBACILLUS ACIDOPHILUS 1 CAP CAP PO SCH (10:22)
[2025-09-13] MEDS ORDERED: ENOXAPARIN SODIUM 40 MG/0.4 ML SYRINGE SUBCUTANEO SCH (10:23)
[2025-09-13] MEDS ORDERED: ENALAPRILAT DIHYDRATE 1.25 MG/ML VIAL IV PRN (10:30)
--- NOTE | 2025-09-13 10:35 | NUR ---
PTE EVALUADA POR la QUIEN ORDENA TRATAMIENTO LA CUAL SE EJECTA. SE CANALIZA CON ANGIO #22 SE MANTIENE COSULTADO CON EL KYLIE BO.
[2025-09-13] MEDS ORDERED: ENOXAPARIN SODIUM 40 MG/0.4 ML SYRINGE SUBCUTANEO ONE (11:23)
[2025-09-13] MEDS ORDERED: LACTOBACILLUS ACIDOPHILUS 1 CAP CAP PO ONE (11:24)
[2025-09-13] MEDS ORDERED: FAMOTIDINE/PF 20 MG/2 ML VIAL ONE (11:24)
[2025-09-13 12:23] VITALS: BP 127/81
[2025-09-13 13:00] LABS: URINE APPEARANCE Cloudy; URINE BILIRRUBIN Negative (NEGATIVE); URINE BLOOD Small; URINE COLOR Yellow; URINE GLUCOSE Negative (NEGATIVE); URINE KETONE Negative (NEGATIVE); URINE LEUKOCYTE Moderate; URINE NITRATE Positive; URINE PROTEIN Negative (NEGATIVE); URINE UROBILINOGEN 0.2 E.U./dl
[2025-09-13 13:03] LABS: URINE EPITHELIAL CELLS 85.6 uL (0.0-38.8); URINE RBC 8.3 uL (0.0-20.8); URINE WBC 508.4 uL (0.0-23.2)
[2025-09-13 13:22] LABS: URINE BACTERIA > 9821.5 uL (0.0-1933); URINE CAST 0.14 uL (0.0-1.40)
[2025-09-13 16:00] VITALS: BP 157/92; O2SAT 99
[2025-09-13 21:43] LABS: BASO % 0.4 % (0.1-1.2); EOS # 0.20 (0.04-0.54); EOS % 1.9 % (0.7-7.0); LYMPH # 2.33 (1.18-3.74); LYMPH % 22.6 % (19.3-53.1); MEAN PLATELET VOLUME 9.00 fl (9.4-12.4); MONO # 0.67 (0.24-0.82); MONO % 6.5 % (4.7-12.5); NEUT # 7.04 (1.56-6.13); NEUT % 68.4 % (34.0-71.1); RED CELL DISTRIBUTION WIDTH 15.3 % (11.6-14.4)
[2025-09-13 21:47] LABS: ERYTHROCYTE SEDIMENTATION RATE 69 mm/hr (0-30)
[2025-09-13 22:20] LABS: ALT/SGPT 47.0 U/L (12-78); AST/SGOT 33.0 U/L (15-37); BILIRUBIN TOTAL 0.16 mg/dL (0.3-1.2); BUN CREA RATIO 14.0 (7.0-25.0); CREATININE SERUM 0.93 mg/dL (0.55-1.02); GFR 63.31; GLOBULINA 3.7 G/DL (2.4-3.5); GLUCOSE FASTING 248.0 mg/dL (65-100); OSMOLALITY SERUM 288.0 MOSM/KG (275-295)
[2025-09-13 22:33] LABS: TSH 0.743 uIU/mL (0.358-3.74)
[2025-09-14 00:30] VITALS: BP 109/55; O2SAT 100
[2025-09-14 08:28] VITALS: BP 125/69; O2SAT 98
[2025-09-14] MEDS ORDERED: HYDROCHLOROTHIAZIDE 12.5 MG CAPSULE PO SCH (09:00)
[2025-09-14] MEDS ORDERED: IRBESARTAN 300 MG TABLET PO SCH (09:00)
[2025-09-14 16:00] VITALS: BP 153/87; O2SAT 100
[2025-09-15 00:42] VITALS: BP 118/72; O2SAT 99
[2025-09-15 08:44] VITALS: BP 136/82; O2SAT 99
[2025-09-15 16:00] VITALS: BP 143/92; O2SAT 98
[2025-09-16 00:42] VITALS: BP 126/78; O2SAT 100
[2025-09-16 06:14] LABS: BASO % 0.3 % (0.1-1.2); EOS # 0.46 (0.04-0.54); EOS % 5.4 % (0.7-7.0); LYMPH # 2.56 (1.18-3.74); LYMPH % 29.8 % (19.3-53.1); MEAN PLATELET VOLUME 8.70 fl (9.4-12.4); MONO # 0.68 (0.24-0.82); MONO % 7.9 % (4.7-12.5); NEUT # 4.81 (1.56-6.13); NEUT % 56.1 % (34.0-71.1); RED CELL DISTRIBUTION WIDTH 14.9 % (11.6-14.4)
[2025-09-16 06:43] LABS: BUN CREA RATIO 22.0 (7.0-25.0); CREATININE SERUM 0.6 mg/dL (0.55-1.02); GFR 104.98; GLUCOSE FASTING 149.0 mg/dL (65-100); OSMOLALITY SERUM 282.0 MOSM/KG (275-295)
[2025-09-16 08:00] VITALS: BP 130/80; O2SAT 96
[2025-09-16 17:52] VITALS: BP 157/89; O2SAT 99
[2025-09-17 01:37] VITALS: BP 129/83; O2SAT 99
[2025-09-17 08:30] VITALS: BP 131/82; O2SAT 98
[2025-09-17 15:59] VITALS: BP 136/83; O2SAT 98
[2025-09-17] MEDS ORDERED: VANCOMYCIN HCL 125 MG CAPSULE PO SCH (18:00)
[2025-09-18 01:10] VITALS: BP 126/75; O2SAT 100
[2025-09-18 06:58] LABS: BASO % 0.5 % (0.1-1.2); EOS # 0.49 (0.04-0.54); EOS % 5.6 % (0.7-7.0); LYMPH # 3.17 (1.18-3.74); LYMPH % 36.0 % (19.3-53.1); MEAN PLATELET VOLUME 8.60 fl (9.4-12.4); MONO # 0.61 (0.24-0.82); MONO % 6.9 % (4.7-12.5); NEUT # 4.47 (1.56-6.13); NEUT % 50.8 % (34.0-71.1); RED CELL DISTRIBUTION WIDTH 14.7 % (11.6-14.4)
[2025-09-18 07:19] LABS: BUN CREA RATIO 27.0 (7.0-25.0); CREATININE SERUM 0.55 mg/dL (0.55-1.02); GFR 116.07; GLUCOSE FASTING 136.0 mg/dL (65-100); OSMOLALITY SERUM 284.0 MOSM/KG (275-295)
[2025-09-18 07:22] LABS: ERYTHROCYTE SEDIMENTATION RATE 61 mm/hr (0-30)
[2025-09-18 08:00] VITALS: BP 122/78; O2SAT 97
[2025-09-18 15:55] VITALS: BP 161/83; O2SAT 100
[2025-09-19 01:12] VITALS: BP 134/76; O2SAT 100
[2025-09-19 08:00] VITALS: BP 121/77; O2SAT 100
[2025-09-19] MEDS ORDERED: AVALIDE 300-121 EACH PO (13:43)
[2025-09-19] MEDS ORDERED: AVAPRO300 MG PO (13:43)
[2025-09-19] MEDS ORDERED: INTESTINEX680 M1 PO (13:43)
[2025-09-19] MEDS ORDERED: GLIMEPIRIDE4 MG PO (13:43)
[2025-09-19] MEDS ORDERED: VANCOMYCIN HCL125 MG PO (13:43)
== END 2025-09-19 14:06 | disposition home or self-care (01) | DRG 690 ==
LOC: ER 08:54 → SEC-K 10:25 → SURG 10:25 → SURH 12:47 → SURG 15:53
PROVIDERS: Internal Medicine; ADMIT Internal Medicine Geriatric Medicine; ATTEND Internal Medicine Geriatric Medicine
PROC: 8E0ZXY6 Isolation (ICD-10-PCS; principal; 2025-09-13)
PROC: BT4JZZZ Ultrasonography of Kidneys and Bladder (ICD-10-PCS; 2025-09-13)
PROC: 02HV33Z Insertion of Infusion Device into Superior Vena Cava, Percutaneous Approach (ICD-10-PCS; 2025-09-13)
PROC: B548ZZA Ultrasonography of Superior Vena Cava, Guidance (ICD-10-PCS; 2025-09-13)
DX: N10 Acute pyelonephritis (principal); A04.72 Enterocolitis due to Clostridium difficile, not specified as recurrent; N39.0 Urinary tract infection, site not specified; B96.1 Klebsiella pneumoniae [K. pneumoniae] as the cause of diseases classified elsewhere; I10 Essential (primary) hypertension; E11.9 Type 2 diabetes mellitus without complications; Z96.0 Presence of urogenital implants

== ENCOUNTER 2025-10-15 13:00 | Outpatient (CLI) | payer OTHER ==
[~2025-10-15 13:00] MED LIST changes: +GLIMEPIRIDE4 MG PO; +VANCOMYCIN HCL125 MG PO
== END 2025-10-15 13:10 | disposition home or self-care (01) ==
LOC: PPH VACUNA 13:00
PROVIDERS: ATTEND Emergency Medicine Pediatric Emergency Medicine
DX: Z23 Encounter for immunization (principal)

== ENCOUNTER 2025-10-23 13:01 | Outpatient (CLI) | payer OTHER | END 2025-10-23 13:02 | disposition home or self-care (01) | LOC: NUCLEAR 13:01 | PROVIDERS: ATTEND Urology | DX: N13.1 Hydronephrosis with ureteral stricture, not elsewhere classified (principal) ==